=== PATIENT | male | born 1995 | race Caucasian/White ===

== ENCOUNTER 2021-11-03 16:05 | Emergency (ER) | payer MEDICAID ==
[~2021-11-03] VITALS: Ht 185.4 cm; Wt 77.1 kg
[2021-11-03 16:31] VITALS: BP 112/66
--- NOTE | 2021-11-03 17:34 | NUR ---
NO NURSING INTERVENTIONS PROVIDED
--- NOTE | 2021-11-03 17:35 | NUR ---
Patient discharged with v/s stable. Written and verbal after care instructions given and explained. Patient verbalized understanding. Ambulatory with steady gait. All questions addressed prior to discharge. Advised to follow up with PMD.
== END 2021-11-03 17:35 | disposition home or self-care (01) ==
LOC: MED 16:05
DX: L70.8 Other acne (principal)
CPT/HCPCS: 69005; 99282

== ENCOUNTER 2022-04-18 13:47 | Emergency (ER) | payer MEDICAID ==
[~2022-04-18] VITALS: Ht 185.4 cm; Wt 79.4 kg
[2022-04-18 14:05] VITALS: BP 126/78
--- NOTE | 2022-04-18 14:08 | NUR ---
TO LOBBY A/W BED AMBULATORY
--- NOTE | 2022-04-18 15:03 | NUR ---
FLU AND COVID SWABS COLLECTED AND WALKED TO LAB
[2022-04-18] MEDS ORDERED: BACITRACIN OINT 500 UNITS/GM PKT TP ONE (15:10)
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
--- NOTE | 2022-04-18 15:41 | NUR ---
APPLIED BANDAID TO PT'S WOUND ON LEFT SIDED UPPER LIP.
[2022-04-18 15:48] LABS: BASOPHILS % (AUTO) 0.7 % (0.0-2.0); EOSINOPHILS % (AUTO) 0.2 % (0.0-4.0); HEMATOCRIT 43.9 % (36-52); LYMPHOCYTES # (AUTO) 1.2 K/uL (2.0-11.5); LYMPHOCYTES % (AUTO) 20.3 % (20.5-51.1); MEAN CORPUSCULAR HEMOGLOBIN 32 pg (27-31); MEAN CORPUSCULAR HGB CONC 34 g/dL (33-37); MEAN CORPUSCULAR VOLUME 93.4 fL (80-94); MONOCYTES # (AUTO) 0.5 K/uL (0.8-1.0); MONOCYTES % (AUTO) 9.3 % (1.7-9.3); NEUTROPHILS % (AUTO) 69.5 % (42.2-75.2); PLATELET COUNT (AUTO) 179 K/uL (140-450); RED CELL DISTRIBUTION WIDTH 13.1 % (11.6-13.7); WHITE BLOOD COUNT (AUTO) 5.8 K/uL (4.8-10.8)
[2022-04-18 16:03] LABS: BARBITURATE, URINE NEGATIVE ng/ml (NEG <=200); BENZODIAZEPINE, URINE NEGATIVE ng/mL (NEG <=200); CANNABINOID, URINE POSITIVE ng/mL (NEG <=50); COCAINE, URINE NEGATIVE ng/mL (NEG <=300); OPIATE, URINE NEGATIVE ng/mL (NEG <=2000); PHENCYCLIDINE SCREEN,URINE NEGATIVE ng/mL (NEG <=25)
[2022-04-18 16:10] LABS: APPEARANCE,URINE CLEAR (CLEAR); BILIRUBIN,URINE NEGATIVE (NEGATIVE); BLOOD, URINE TRACE-I (NEGATIVE); COLOR,URINE YELLOW (YELLOW); LEUKOCYTE ESTERASE ,URINE NEGATIVE (NEGATIVE); NITRITE, URINE NEGATIVE (NEGATIVE); UGLUCOSE NEGATIVE (NEGATIVE)
[2022-04-18 16:28] LABS: ALBUMIN 4.4 g/dL (3.4-5.0); ANION GAP 14.6 (8-16); CREATININE 0.9 mg/dL (0.6-1.3); POTASSIUM 3.6 mmol/L (3.5-5.1); THYROID STIMULATING HORMONE 0.75 uIU/mL (0.34-3.74); TOTAL BILIRUBIN 0.5 mg/dL (0.0-1.0)
[2022-04-18 17:41] VITALS: BP 131/77
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
== END 2022-04-18 17:41 | disposition home or self-care (01) ==
LOC: MED 13:47
DX: F41.9 Anxiety disorder, unspecified (principal); Z20.822 Contact with and (suspected) exposure to COVID-19; F43.10 Post-traumatic stress disorder, unspecified; R53.1 Weakness; Z98.890 Other specified postprocedural states
CPT/HCPCS: 36415; 80053; 80305; 81003; 84443; 85025; 87491; 93005; 99284

== ENCOUNTER 2022-11-29 17:48 | Emergency (ER) | payer MEDICAID ==
[~2022-11-29] VITALS: Ht 185.4 cm; Wt 80.3 kg
--- NOTE | 2022-11-29 17:50 | NUR ---
CALLED IN LOBBY, NO ANSWER
[2022-11-29 18:06] VITALS: BP 103/67
--- NOTE | 2022-11-29 18:09 | NUR ---
URINE COLLECTED AND SENT TO LAB
[2022-11-29] MEDS ORDERED: traMADol 50 MG TAB PO ONE (18:20)
--- NOTE | 2022-11-29 18:58 | NUR ---
TO ER BED 2
--- NOTE | 2022-11-29 19:00 | NUR ---
27 Y/O Male BIB self for penile pain s/p oral sex 3 days ago. Pt denies any dysuria or discharge. Denies N/V/D. Denies IV use and mult partners. pmhx: testicular CA NKA
--- NOTE | 2022-11-29 19:21 | NUR ---
Pt report given to WILLIE Fletcher. Transfer of care at this time.
[2022-11-29 19:34] LABS: APPEARANCE,URINE CLEAR (CLEAR); BILIRUBIN,URINE NEGATIVE (NEGATIVE); BLOOD, URINE TRACE-L (NEGATIVE); COLOR,URINE YELLOW (YELLOW); LEUKOCYTE ESTERASE ,URINE NEGATIVE (NEGATIVE); NITRITE, URINE NEGATIVE (NEGATIVE); UGLUCOSE NEGATIVE (NEGATIVE)
[2022-11-29] MEDS ORDERED: CLOT1CRE82 TP (19:36)
[2022-11-29] MEDS ORDERED: BACTO TP (19:36)
[2022-11-29] MEDS ORDERED: CEPH-588 PO (19:36)
[2022-11-29 19:38] LABS: RBC,URINE 0-5 /HPF (0-5); WBC,URINE 0-5 /HPF (0-5)
--- NOTE | 2022-11-29 19:55 | NUR ---
Patient discharged with v/s stable. Written and verbal after care instructions given and explained. Patient alert, oriented and verbalized understanding of instructions. Ambulatory with to car. All questions addressed prior to discharge. ID band removed. Patient advised to follow up with PMD. Rx of Mupirocin,keflex/clotimazole given. Patient educated on indication of medication including possible reaction and side effects. Opportunity to ask questions provided and answered.
== END 2022-11-29 19:55 | disposition home or self-care (01) ==
LOC: MED 17:48
DX: R21 Rash and other nonspecific skin eruption (principal); Z11.3 Encounter for screening for infections with a predominantly sexual mode of transmission; Z79.899 Other long term (current) drug therapy; Z85.47 Personal history of malignant neoplasm of testis
CPT/HCPCS: 81001; 86592; 87491; 99283